=== PATIENT | female | born 1965 | race Caucasian/White ===

== ENCOUNTER 2017-08-16 12:12 | Outpatient (CLI) | payer BC | END 2017-08-16 12:13 | disposition home or self-care (01) | LOC: BICMAMMO 12:12 | DX: Z12.31 Encounter for screening mammogram for malignant neoplasm of breast (principal); E04.1 Nontoxic single thyroid nodule; N63.20 Unspecified lump in the left breast, unspecified quadrant; Z80.3 Family history of malignant neoplasm of breast | CPT/HCPCS: 76536; 77063; 77067 ==

== ENCOUNTER 2018-08-26 13:05 | Outpatient (CLI) | payer BC ==
--- NOTE | 2018-08-26 14:30 | MMO ---
Bilateral MAMMO Bilat Screen [facility]. CLINICAL HISTORY: Patient is 53 years old and is seen for screening. The patient has the following family history of breast cancer: cousin female, 40's. The patient has no personal history of cancer. The patient has a history of right Excisional Biopsy in 1998 - benign. VIEWS: The views performed were: bilateral craniocaudal with tomosynthesis and bilateral mediolateral oblique with tomosynthesis. FILMS COMPARED: The present examination has been compared to prior imaging studies performed at [facility] on 12/09/2012, 12/15/2013, 01/27/2015, 02/01/2016 and 08/16/2017. MAMMOGRAM FINDINGS: There are scattered fibroglandular densities. Finding 1: There are stable benign appearing calcifications seen in both breasts. Finding 2: There is a stable nodule seen in the left breast. There are no suspicious masses, suspicious calcifications, or new areas of architectural distortion. IMPRESSION: THERE IS NO MAMMOGRAPHIC EVIDENCE OF MALIGNANCY. A ROUTINE FOLLOW-UP MAMMOGRAM IN 1 YEAR IS RECOMMENDED. THE RESULTS OF THIS EXAM WERE SENT TO THE PATIENT. ACR BI-RADS Category 2 - Benign finding MAMMOGRAPHY NOTE: 1. A negative mammogram report should not delay a biopsy if a dominant of clinically suspicious mass is present. 2. Approximately 10% to 15% of breast cancers are not detected by mammography. 3. Adenosis and dense breasts may obscure an underlying neoplasm.
--- NOTE | 2018-08-26 14:33 | BD ---
DEXA BONE SCAN: HISTORY: Screening DEXA bone scan is performed. COMPARISON: Comparison study is not available. FINDINGS: DEXA bone scan performed of the left hip and lumbar spine. DEXA evaluation was performed using hologic bone mineral density unit. Lumbar Spine: BMD (g/cm2) L1 0.69 T-Score: -2.7 Z-Score: -1.8 L2 0.78 T-Score: -2.3 Z-Score: -1.2 L3 0.66 T-Score: -3.9 Z-Score: -2.8 L4 0.70 T-Score: -3.3 Z-Score: -2.1 L1-L4 0.71 T-Score: -3.1 Z-Score: -2.0 Femoral Neck: 0.53 T-Score: -2.9 Z-Score: -1.8 Total Femur: 0.68 T-Score: -2.2 Z-Score: -1.5 Findings compatible with osteoporosis. Impression: Osteoporosis. The patient has an increased risk of osteoporotic fractures. POS: ROGER
== END 2018-08-26 13:06 | disposition home or self-care (01) ==
LOC: BICMAMMO 13:05
DX: Z12.31 Encounter for screening mammogram for malignant neoplasm of breast (principal); Z13.820 Encounter for screening for osteoporosis; Z78.0 Asymptomatic menopausal state; M81.0 Age-related osteoporosis without current pathological fracture; Z80.3 Family history of malignant neoplasm of breast
CPT/HCPCS: 77063; 77067; 77080

== ENCOUNTER 2018-09-04 14:24 | Outpatient (CLI) | payer BC ==
--- NOTE | 2018-09-04 15:15 | ULT ---
THYROID ULTRASOUND INDICATION: Thyroid nodule TECHNIQUE: Grayscale and color Doppler images were obtained of the thyroid gland. COMPARISON: None FINDINGS: Right thyroid lobe: The right thyroid lobe measures 4.7 x 1.2 x 1.8 cm. There is a 1.5 x 0.6 x 0.9 cm predominantly cystic nodule involving the mid right thyroid lobe. A small eccentric soft tissue nodule is seen within the cyst. There is an additional 3 mm cyst seen within the right mid thyroid lo be. An additional 3 mm cyst is seen within the right mid thyroid lobe. Thyroid isthmus: The thyroid isthmus measures 0.34 cm. Left thyroid lobe: The left thyroid lobe measures 4.9 x 1.0 x 1.7 cm. There is a hyperechoic 3.2 x 4 mm nodule within the superior left thyroid lobe. There is a 3.7 mm cyst within the mid left thyroid lobe. There is an additional 3 mm cyst within the left mid thyroid lobe. Incidental note is made of a partially calcified atherosclerotic plaque involving the distal left com mon carotid artery. IMPRESSION: 1. TIRADS 1 lesion of the mid right thyroid lobe measuring up to 1.5 cm. No additional sonographic fo llow up is recommended. There are additional smaller cystlike abnormalities within the right thyroid lobe that requires no further follow-up. 2. Hyperechoic 4 mm nodule within the superior left thyroid lobe is consistent with a TIRADS 3 lesion this is below 1.5 cm in size and therefore does not require sonographic follow-up.
== END 2018-09-04 14:25 | disposition home or self-care (01) ==
LOC: BICULT 14:24
PROVIDERS: ATTEND Family Medicine
DX: E04.1 Nontoxic single thyroid nodule (principal); E07.89 Other specified disorders of thyroid; R94.6 Abnormal results of thyroid function studies
CPT/HCPCS: 76536

== ENCOUNTER 2018-10-01 13:36 | Outpatient (CLI) | payer BC ==
--- NOTE | 2018-10-01 14:59 | MMO ---
Left Breast MAMMO Unilat Diag [facility]. CLINICAL HISTORY: Patient is 53 years old and is seen for diagnostic exam and skin thickening or retraction on clinical examination in the left breast. The patient has the following family history of breast cancer: cousin female, 40's. The patient has no personal history of cancer. The patient has a history of right Excisional Biopsy in 1998 - benign. VIEWS: The views performed were: left craniocaudal with tomosynthesis; left mediolateral oblique with tomosynthesis; and left mediolateral. FILMS COMPARED: The present examination has been compared to prior imaging studies performed at [facility] on 01/27/2015, 02/01/2016, 08/16/2017 and 08/26/2018. MAMMOGRAM FINDINGS: There are scattered fibroglandular densities. There is a stable oval mass with circumscribed margins seen in the central region of the left breast. There are no suspicious masses, suspicious calcifications, or new areas of architectural distortion. IMPRESSION: THERE IS NO MAMMOGRAPHIC EVIDENCE OF MALIGNANCY. A ROUTINE FOLLOW-UP MAMMOGRAM IN 1 YEAR IS RECOMMENDED. THE RESULTS OF THIS EXAM WERE SENT TO THE PATIENT. ACR BI-RADS Category 2 - Benign finding MAMMOGRAPHY NOTE: 1. A negative mammogram report should not delay a biopsy if a dominant of clinically suspicious mass is present. 2. Approximately 10% to 15% of breast cancers are not detected by mammography. 3. Adenosis and dense breasts may obscure an underlying neoplasm.
== END 2018-10-01 13:37 | disposition home or self-care (01) ==
LOC: BICMAMMO 13:36
PROVIDERS: ATTEND Family Medicine
DX: N64.59 Other signs and symptoms in breast (principal); Z80.3 Family history of malignant neoplasm of breast
CPT/HCPCS: G0279

== ENCOUNTER 2019-02-25 15:23 | Outpatient (CLI) | payer MEDICARE, BC ==
--- NOTE | 2019-02-25 16:10 | RAD ---
CERVICAL SPINE: INDICATIONS: Cervical spondylosis. COMPARISON: Cervical spine of 02/07/2016. TECHNIQUE: Total of nine views. FINDINGS: Postoperative changes are again noted. Anterior plate and screws are again seen transfixing C3, C4, C 5, C6 and C7. Interbody implants at these levels and interbody fusion changes. Mild anterolisthesis at C6-C7 appears stable from the prior exam. There is loss of height at C6 which is a stable finding. The foramina appear patent. Posterior alignment is otherwise maintained and sta ble from the prior exam. IMPRESSION: Postoperative changes to the cervical spine appear stable when compared to 02/07/2016. POS: OFF
== END 2019-02-25 15:24 | disposition home or self-care (01) ==
LOC: BICRAD 15:23
PROVIDERS: ATTEND Anesthesiology Pain Medicine
DX: M47.812 Spondylosis without myelopathy or radiculopathy, cervical region (principal); Z98.890 Other specified postprocedural states
CPT/HCPCS: 72052

== ENCOUNTER 2019-03-16 14:22 | Outpatient (CLI) | payer MEDICARE, BC ==
--- NOTE | 2019-03-16 15:06 | ULT ---
ULTRASOUND THYROID: Date: 03/16/19 HISTORY: Abnormality of parathyroid gland. COMPARISON: Prior MRI examination of cervical spine. FINDINGS: There is no abnormal enlargement of the parathyroid glands, which are not definitively seen. Right lo be thyroid cyst is similar compared to outside facilities. IMPRESSION: No abnormal enlargement of parathyroid gland. POS: OFF
== END 2019-03-16 14:23 | disposition home or self-care (01) ==
LOC: BICULT 14:22
PROVIDERS: ATTEND Internal Medicine Endocrinology, Diabetes & Metabolism
DX: E04.1 Nontoxic single thyroid nodule (principal); E21.2 Other hyperparathyroidism
CPT/HCPCS: 76536

== ENCOUNTER 2022-06-08 09:54 | Outpatient (CLI) | payer MEDICARE, BC | END 2022-06-08 09:55 | disposition home or self-care (01) | LOC: RAD 09:54 | PROVIDERS: ATTEND Internal Medicine | DX: J43.9 Emphysema, unspecified (principal); J98.4 Other disorders of lung; Z98.1 Arthrodesis status | CPT/HCPCS: 71046 ==

== ENCOUNTER 2023-04-28 17:15 | Inpatient (IN) | payer MEDICARE, BC ==
[2023-04-28 18:25] LABS: #Monocytes 0.7 thou/uL (0.11-0.59); #Neutrophils 6.4 thou/uL (1.40-6.50); %Basophils 0.2 % (0.0-1.0); %Lymphocytes 14.7 % (21.0-51.0); %Monocytes 8.8 % (0.0-10.0); %Neutrophils 75.9 % (42.0-75.0); Mean Corpuscular HGB CONC 31.9 g/dL (32.0-36.0); Mean Corpuscular Volume 106.6 fl (78.0-98.0); Mean Platelet Volume 9.9 fL (7.4-10.4); Platelet Count 134 10x3/uL (130-400); RBC Distribution Width 14.9 % (11.5-14.5); Red Blood Cell (RBC) Count 4.41 mill/uL (4.20-5.40); White Blood Cell (WBC) Count 8.4 10x3/uL (4.8-10.8)
[2023-04-28 18:47] LABS: ALT (SGPT) 530 U/L (8-55); AST (SGOT) 503 U/L (5-34); Albumin 3.2 g/dL (3.5-5.0); Alkaline Phosphatase 133 U/L (40-110); Anion Gap 16 mmol/L (10-20); BUN (Urea Nitrogen) 39 mg/dL (9.8-20.1); Bilirubin, Total 1.3 mg/dL (0.2-1.2); Calc. Creatinine Clearance 0 mL/min (70-130); Carbon Dioxide 26 mmol/L (22-29); Chloride 103 mmol/L (98-107); Estimated GFR 34; Globulin 2.3 g/dL (2.4-3.5); Glucose 89 mg/dL (70-105); Potassium 5.8 mmol/L (3.5-5.1); Protein, Total 5.5 g/dL (6.0-8.3); Sodium 139 mmol/L (136-145)
[2023-04-28 19:36] LABS: Troponin I 0.087 ng/mL (< 0.028)
[2023-04-28 20:03] LABS: Bacteria/HPF None Seen HPF (None Seen); Bilirubin Negative (Negative); Blood, Urine Negative (Negative); CAUTI Indications for Culture Alt mental st,lethar; Clarity Clear (Clear); Glucose, Urine (Dipstick) Normal (Negative); Ketone, Urine Negative (Negative); Leukocyte Negative Leu/uL (Negative); Nitrite Negative (Negative); Protein, Urine (Dipstick) 100 mg/dL (Neg-Trace); RBC/HPF 0-3 HPF (0-3); Specific Gravity, Urine 1.026 (1.002-1.036); Squamous Epithelial 0-3 HPF (0-3); WBC/HPF 0-3 HPF (0-3); pH, Urine 5.5 (5.0-9.0)
[2023-04-28 20:05] LABS: Urine Culture Reflex No No
[2023-04-28 20:16] LABS: Alcohol Less than 10.0 mg/dL (Less than 10); Salicylate Less than 8.0 mg/dL (15.0-30.0)
[2023-04-28] MEDS ORDERED: Senokot S 8.6-50 MG TAB PO PRN (20:47)
[2023-04-28] MEDS ORDERED: Albuterol 2.5 MG (3 mL) NEB NEB PRN (20:57)
[2023-04-28] MEDS ORDERED: Sodium Chloride 0.9% 1,000 ML IV SCH (21:00)
[2023-04-28] MEDS ORDERED: Lactulose 20 GM (30 mL) UDCUP PO SCH (21:30)
[2023-04-28 21:32] LABS: Lactic Acid 1.1 mmol/L (0.5-2.2)
[2023-04-28 21:33] LABS: Acetaminophen Less than 10 mcg/mL (10.0-30.0)
[2023-04-28 21:53] LABS: Troponin I 0.108 ng/mL (< 0.028)
[2023-04-29 00:56] LABS: Anion Gap 13 mmol/L (10-20); BUN (Urea Nitrogen) 42 mg/dL (9.8-20.1); Calc. Creatinine Clearance 26 mL/min (70-130); Carbon Dioxide 27 mmol/L (22-29); Chloride 103 mmol/L (98-107); Estimated GFR 41; Glucose 85 mg/dL (70-105); Lipase 15 U/L (8-78); Potassium 5.5 mmol/L (3.5-5.1); Sodium 137 mmol/L (136-145)
[2023-04-29 01:49] LABS: Troponin I 0.094 ng/mL (< 0.028)
[2023-04-29 03:16] LABS: #Basophils 0.1 thou/uL (0.0-0.2); #Monocytes 1.6 thou/uL (0.11-0.59); #Neutrophils 7.2 thou/uL (1.40-6.50); %Basophils 0.4 % (0.0-1.0); %Eosinophils 0.1 % (0.0-10.0); %Lymphocytes 21.5 % (21.0-51.0); %Monocytes 13.8 % (0.0-10.0); %Neutrophils 63.7 % (42.0-75.0); Hemoglobin 15.6 g/dL (12.0-16.0); Mean Platelet Volume 9.6 fL (7.4-10.4); Platelet Count 149 10x3/uL (130-400); RBC Distribution Width 15.1 % (11.5-14.5); Red Blood Cell (RBC) Count 4.59 mill/uL (4.20-5.40); White Blood Cell (WBC) Count 11.3 10x3/uL (4.8-10.8)
[2023-04-29 04:07] LABS: ALT (SGPT) 742 U/L (8-55); AST (SGOT) 725 U/L (5-34); Alkaline Phosphatase 135 U/L (40-110); Anion Gap 17 mmol/L (10-20); BUN (Urea Nitrogen) 42 mg/dL (9.8-20.1); Bilirubin, Total 1.2 mg/dL (0.2-1.2); Calc. Creatinine Clearance 26 mL/min (70-130); Calcium 7.9 mg/dL (7.8-10.44); Carbon Dioxide 19 mmol/L (22-29); Chloride 106 mmol/L (98-107); Estimated GFR 41; Globulin 2.9 g/dL (2.4-3.5); Glucose 72 mg/dL (70-105); Potassium 6.4 mmol/L (3.5-5.1); Protein, Total 5.9 g/dL (6.0-8.3); Sodium 136 mmol/L (136-145)
[2023-04-29 04:20] LABS: Macrocytosis SLIGHT = 6-15 cells (100X) (0-5/hpf)
[2023-04-29] MEDS ORDERED: Dextrose 50% Abboject 50 ML SYRINGE SLOW IVP ONE ×2 (04:21→04:25)
[2023-04-29] MEDS ORDERED: Calcium Gluc 4.6 MEQ/10 ML (100 MG/ML) SLOW IVP ONE (04:23)
[2023-04-29 04:24] LABS: Mean Corpuscular Volume 113.3 fl (78.0-98.0)
[2023-04-29] MEDS ORDERED: CALCIUM GLUC 1 GM/NS 50 ML 1 GM in Premix 1 BAG IVPB SCH (04:30)
[2023-04-29] MEDS ORDERED: Insulin Regular 300 UNITS/3 ML VIAL ONE (04:36)
[2023-04-29] MEDS ORDERED: Calcium Gluc 4.6 MEQ/10 ML (100 MG/ML) ONE (04:36)
[2023-04-29] MEDS ORDERED: Dextrose 10% in Water 250 ML ONE ×2 (04:36→06:56)
[2023-04-29] MEDS ORDERED: Insulin Regular 300 UNITS/3 ML VIAL SC SCH (04:45)
[2023-04-29 06:23] LABS: Lactic Acid 1.1 mmol/L (0.5-2.2)
[2023-04-29 06:33] LABS: Anion Gap 13 mmol/L (10-20); BUN (Urea Nitrogen) 45 mg/dL (9.8-20.1); Calc. Creatinine Clearance 24 mL/min (70-130); Calcium 8.3 mg/dL (7.8-10.44); Carbon Dioxide 26 mmol/L (22-29); Chloride 104 mmol/L (98-107); Estimated GFR 37; Glucose 166 mg/dL (70-105); Potassium 5.6 mmol/L (3.5-5.1); Sodium 137 mmol/L (136-145)
[2023-04-29] MEDS ORDERED: Ipratropium/Albuterol 3 ML NEB NEB PRN (07:28)
[2023-04-29] MEDS ORDERED: Thiamine HCl 200 MG/2 ML VIAL ONE (12:02)
[2023-04-29] MEDS ORDERED: Folic Acid 1 MG TAB ONE (12:02)
[2023-04-29] MEDS ORDERED: Pantoprazole 40 MG VIAL ONE (12:02)
[2023-04-29] MEDS ORDERED: Lactulose 20 GM (30 mL) UDCUP ONE (12:03)
[2023-04-29] MEDS: Pantoprazole 40 MG VIAL IVP SCH (12:22)
[2023-04-29] MEDS: Lactulose 20 GM (30 mL) UDCUP PO SCH ×3 (12:22→22:47)
[2023-04-29] MEDS: Thiamine HCl 200 MG/2 ML VIAL SLOW IVP SCH (12:22)
[2023-04-29] MEDS: Rifaximin 200 MG TAB PO SCH ×3 (12:22→22:12)
[2023-04-29] MEDS: Folic Acid 1 MG TAB PO SCH (12:22)
[2023-04-29] MEDS: Albumin 25% 25 GM (100 mL) BOT IVPB SCH ×2 (13:48→18:57)
[2023-04-29 16:29] LABS: HBCM Index 0.07 S/CO (0-0.79); HBSAg Index 0.23 S/CO (0-0.99); Hep A IgM AB Non-Reactive S/CO (NonReactive); Hep A IgM S/CO 0.14 S/CO (0-0.79); Hep B Surf Ag Non-Reactive S/CO (NonReactive); Hep C IgG Ab Non-Reactive S/CO (NonReactive); Hep C Index 0.04 S/CO (0-0.79); Hepatitis B Core IgM Abs Non-Reactive S/CO (NonReactive)
[2023-04-29 16:49] LABS: Anion Gap 14 mmol/L (10-20); BUN (Urea Nitrogen) 45 mg/dL (9.8-20.1); Calc. Creatinine Clearance 33 mL/min (70-130); Calcium 8.2 mg/dL (7.8-10.44); Carbon Dioxide 21 mmol/L (22-29); Chloride 106 mmol/L (98-107); Estimated GFR 55; Glucose 111 mg/dL (70-105); Potassium 5.4 mmol/L (3.5-5.1); Sodium 136 mmol/L (136-145)
[2023-04-29] MEDS ORDERED: Lidocaine 4% Patch TD SCH (23:30)
[2023-04-30] MEDS: Albumin 25% 25 GM (100 mL) BOT IVPB SCH ×4 (00:13→17:22)
[2023-04-30] MEDS: Folic Acid 1 MG TAB PO SCH (08:16)
[2023-04-30] MEDS: Rifaximin 200 MG TAB PO SCH (08:16)
[2023-04-30] MEDS: Thiamine HCl 200 MG/2 ML VIAL SLOW IVP SCH (08:16)
[2023-04-30] MEDS: Lactulose 20 GM (30 mL) UDCUP PO SCH ×3 (08:16→20:41)
[2023-04-30] MEDS: Pantoprazole 40 MG VIAL IVP SCH (08:16)
[2023-04-30] MEDS ORDERED: Transdermal Patch Removal TOP SCH (12:00)
[2023-04-30] MEDS ORDERED: Rifaximin 200 MG TAB PO SCH (21:00)
[2023-05-01] MEDS: Albumin 25% 25 GM (100 mL) BOT IVPB SCH ×2 (02:12→05:59)
[2023-05-01 05:24] LABS: ALT (SGPT) 437 U/L (8-55); AST (SGOT) 248 U/L (5-34); Albumin 4.9 g/dL (3.5-5.0); Alkaline Phosphatase 91 U/L (40-110); Anion Gap 10 mmol/L (10-20); BUN (Urea Nitrogen) 30 mg/dL (9.8-20.1); Bilirubin, Total 1.1 mg/dL (0.2-1.2); Calc. Creatinine Clearance 48 mL/min (70-130); Calcium 8.9 mg/dL (7.8-10.44); Carbon Dioxide 35 mmol/L (22-29); Chloride 103 mmol/L (98-107); Estimated GFR 86; Globulin 1.6 g/dL (2.4-3.5); Glucose 100 mg/dL (70-105); Potassium 4.9 mmol/L (3.5-5.1); Protein, Total 6.5 g/dL (6.0-8.3); Sodium 143 mmol/L (136-145)
[2023-05-01] MEDS: Lactulose 20 GM (30 mL) UDCUP PO SCH ×3 (08:52→21:22)
[2023-05-01] MEDS: Folic Acid 1 MG TAB PO SCH (08:53)
[2023-05-01] MEDS: Pantoprazole 40 MG VIAL IVP SCH (08:53)
[2023-05-01] MEDS: Thiamine HCl 200 MG/2 ML VIAL SLOW IVP SCH (08:53)
[2023-05-01] MEDS ORDERED: Rifaximin 200 MG TAB PO SCH (09:00)
[2023-05-01] MEDS ORDERED: Rifaximin 550 MG TAB PO SCH (11:15)
[2023-05-01 13:10] LABS: Phosphorus 3.1 mg/dL (2.3-4.7)
[2023-05-01] MEDS: Rifaximin 550 MG TAB PO SCH (21:22)
[2023-05-01 21:42] LABS: Base Excess 10.5 mEq/L (-2.0 to +3.0); Calcium, Ionized (venous) 1.32 mmol/L (1.16-1.32); Chloride (VBG) 101 mmol/L (98-106); Hematocrit-VBG 38 % (36.0-47.0); Hemoglobin (Hb) 12.8 g/dL (11.7-16.0); Potassium (VBG) 5.51 mmol/L (3.70-5.30); Sodium 148 mmol/L (133-146)
[2023-05-01 21:54] LABS: #Basophils 0.1 thou/uL (0.0-0.2); #Monocytes 0.9 thou/uL (0.11-0.59); #Neutrophils 5.7 thou/uL (1.40-6.50); %Basophils 0.6 % (0.0-1.0); %Eosinophils 0.1 % (0.0-10.0); %Lymphocytes 13.5 % (21.0-51.0); %Monocytes 11.1 % (0.0-10.0); %Neutrophils 72.4 % (42.0-75.0); Hematocrit 42.2 % (36.0-47.0); Hemoglobin 12.3 g/dL (12.0-16.0); Mean Corpuscular HGB CONC 29.1 g/dL (32.0-36.0); Mean Corpuscular Hemoglobin 33.6 pg (27.0-31.0); Mean Corpuscular Volume 115.3 fl (78.0-98.0); Mean Platelet Volume 10.3 fL (7.4-10.4); Platelet Count 118 10x3/uL (130-400); RBC Distribution Width 14.8 % (11.5-14.5); Red Blood Cell (RBC) Count 3.66 mill/uL (4.20-5.40); White Blood Cell (WBC) Count 7.9 10x3/uL (4.8-10.8)
[2023-05-01] MEDS ORDERED: Ventilator Sedation Protocol 1 EACH FS SCH (21:54)
[2023-05-01 22:00] LABS: Actual Bicarbonate (HCO3v) 45.6 mEq/L (22-28); pH (venous) 7.093 (7.32-7.43)
[2023-05-01] MEDS ORDERED: Etomidate 40 MG (20 mL) VIAL IVP SCH (22:00)
[2023-05-01] MEDS ORDERED: Rocuronium Bromide 10 MG/ML (10ML VIAL) IVP SCH (22:00)
[2023-05-01 22:13] LABS: Lactic Acid 0.4 mmol/L (0.5-2.2)
[2023-05-01] MEDS ORDERED: Fentanyl CADD 100 ML IV SCH (22:15)
[2023-05-01] MEDS ORDERED: Fentanyl BOLUS 250 ML IVPB PRN (22:15)
[2023-05-01] MEDS ORDERED: Lorazepam 2 MG/ML VIAL SLOW IVP PRN (22:15)
[2023-05-01] MEDS ORDERED: DISCONTINUE PREVIOUS NARCOTIC PAIN MEDICATIONS AND BENZODIAZEPINES FS SCH (22:15)
[2023-05-01] MEDS ORDERED: Propofol BOLUS 1,000 MG/100 ML VIAL IV PRN (22:15)
[2023-05-01] MEDS ORDERED: Ipratropium/Albuterol 3 ML NEB NEB PRN (22:17)
[2023-05-01 22:18] LABS: ALT (SGPT) 422 U/L (8-55); AST (SGOT) 227 U/L (5-34); Albumin 4.3 g/dL (3.5-5.0); Alkaline Phosphatase 82 U/L (40-110); BUN (Urea Nitrogen) 49 mg/dL (9.8-20.1); Calc. Creatinine Clearance 50 mL/min (70-130); Calcium 8.9 mg/dL (7.8-10.44); Estimated GFR 91; Globulin 1.6 g/dL (2.4-3.5); Glucose 112 mg/dL (70-105); Protein, Total 5.9 g/dL (6.0-8.3)
[2023-05-01 22:28] LABS: Anion Gap 14 mmol/L (10-20); Basophilic Stippling SLIGHT = 1-2 cells HPF (None Seen); Carbon Dioxide 35 mmol/L (22-29); CellaVision Operator ID lab.abc; Chloride 105 mmol/L (98-107); Hypochromia SLIGHT = 6-15 cells HPF (0-5); Macrocytosis SLIGHT = 6-15 cells HPF (0-5); Platelet Adequacy Comment Platelets Decreased; Polychromasia SLIGHT = 2-3 cells HPF (0-2); Potassium 5.8 mmol/L (3.5-5.1); Sodium 148 mmol/L (136-145)
[2023-05-01] MEDS: Propofol 1,000 MG/100 ML VIAL IV PRN (22:30)
[2023-05-01] MEDS ORDERED: Dextrose 5% in Water 1,000 ML IV PRN (22:55)
[2023-05-01] MEDS ORDERED: Glucagon 1 MG/ML KIT IM PRN (22:55)
[2023-05-01] MEDS ORDERED: HumaLOG 300 UNITS/3 ML VIAL SC PRN (22:55)
[2023-05-01] MEDS ORDERED: Dextrose 50% Abboject 50 ML SYRINGE SLOW IVP PRN (22:55)
[2023-05-01] MEDS ORDERED: Electrolyte Replacement Protocol 1 EACH FS PRN (22:56)
[2023-05-01] MEDS ORDERED: Insulin Regular 300 UNITS/3 ML VIAL IVP SCH (23:00)
[2023-05-01 23:12] LABS: Actual Bicarbonate (HCO3a) 37.2 mEq/L (22-28); Base Excess (BEa) 10.3 mEq/L (-2.0 to +3.0); Calcium, Ionized (arterial) 1.24 mmol/L (1.12-1.30); Carboxyhemoglobin (COHb) 2.1 gm% (0.0-3.0); Hematocrit-ABG 37 % (36.0-47.0); Hemoglobin (Hb) 12.5 g/dL (12.0-16.0); pH, Arterial 7.404 (7.35-7.45)
[2023-05-01 23:14] LABS: Puncture Site RBA
[2023-05-01] MEDS: methylPREDNISolone Sod Succ 40 MG VIAL IVP SCH (23:34)
[2023-05-01] MEDS ORDERED: Furosemide 20 MG (2 mL) VIAL SLOW IVP SCH (23:45)
[2023-05-02] MEDS ORDERED: Lactated Ringer's 500 ML IV SCH (01:45)
[2023-05-02] MEDS ORDERED: Albumin 25% 25 GM (100 mL) BOT IVPB SCH (01:45)
[2023-05-02 02:13] LABS: #Monocytes 0.9 thou/uL (0.11-0.59); #Neutrophils 7.2 thou/uL (1.40-6.50); %Basophils 0.2 % (0.0-1.0); %Eosinophils 0.1 % (0.0-10.0); %Lymphocytes 7.5 % (21.0-51.0); %Monocytes 9.9 % (0.0-10.0); %Neutrophils 81.5 % (42.0-75.0); Hematocrit 35.3 % (36.0-47.0); Hemoglobin 10.5 g/dL (12.0-16.0); Mean Corpuscular HGB CONC 29.7 g/dL (32.0-36.0); Mean Corpuscular Volume 114.2 fl (78.0-98.0); Mean Platelet Volume 10.5 fL (7.4-10.4); Platelet Count 119 10x3/uL (130-400); RBC Distribution Width 14.6 % (11.5-14.5); Red Blood Cell (RBC) Count 3.09 mill/uL (4.20-5.40); White Blood Cell (WBC) Count 8.9 10x3/uL (4.8-10.8)
[2023-05-02] MEDS: Vasopressin 20 UNITS in Sodium Chloride 0.9% 50 ML IV SCH ×3 (02:18→17:48)
[2023-05-02 02:29] LABS: INR-International Normal Ratio 1.3; Lactic Acid 2.7 mmol/L (0.5-2.2)
[2023-05-02 02:31] LABS: Fibrinogen 196 mg/dL (253-463); PTT 26.5 sec (22.9-36.1)
[2023-05-02 02:33] LABS: D-Dimer Test 3.48 *mcg/mL (0.27-0.43)
[2023-05-02 02:36] LABS: Platelet Count 119 10x3/uL (130-400)
[2023-05-02 02:44] LABS: Magnesium 2.1 mg/dL (1.6-2.6); Phosphorus 1.9 mg/dL (2.3-4.7)
[2023-05-02] MEDS ORDERED: Pantoprazole 40 MG VIAL IVP SCH (02:45)
[2023-05-02] MEDS ORDERED: Etomidate 40 MG (20 mL) VIAL ONE (03:13)
[2023-05-02] MEDS ORDERED: Rocuronium Bromide 10 MG/ML (10ML VIAL) ONE (03:13)
[2023-05-02] MEDS: methylPREDNISolone Sod Succ 40 MG VIAL IVP SCH (05:41)
[2023-05-02 05:48] LABS: Hematocrit 39.1 % (36.0-47.0); Hemoglobin 12.2 g/dL (12.0-16.0)
[2023-05-02 06:07] LABS: Lactic Acid 2.6 mmol/L (0.5-2.2)
[2023-05-02 06:26] LABS: Platelet Count 87 10x3/uL (130-400)
[2023-05-02 06:27] LABS: Anion Gap 17 mmol/L (10-20); Carbon Dioxide 33 mmol/L (22-29); Chloride 103 mmol/L (98-107); Potassium 4.7 mmol/L (3.5-5.1); Sodium 148 mmol/L (136-145)
[2023-05-02 07:03] LABS: ALT (SGPT) 400 U/L (8-55); AST (SGOT) 236 U/L (5-34); Albumin 4.1 g/dL (3.5-5.0); Alkaline Phosphatase 69 U/L (40-110); BUN (Urea Nitrogen) 55 mg/dL (9.8-20.1); Bilirubin, Total 2.9 mg/dL (0.2-1.2); Calc. Creatinine Clearance 45 mL/min (70-130); Calcium 8.8 mg/dL (7.8-10.44); Estimated GFR 84; Globulin 1.3 g/dL (2.4-3.5); Glucose 147 mg/dL (70-105); Protein, Total 5.4 g/dL (6.0-8.3)
[2023-05-02 08:11] LABS: #Monocytes 0.9 thou/uL (0.11-0.59); #Neutrophils 8.9 thou/uL (1.40-6.50); %Basophils 0.3 % (0.0-1.0); %Monocytes 8.5 % (0.0-10.0); %Neutrophils 85.4 % (42.0-75.0); Hematocrit 43.6 % (36.0-47.0); Hemoglobin 13.6 g/dL (12.0-16.0); Mean Corpuscular HGB CONC 31.2 g/dL (32.0-36.0); Mean Corpuscular Hemoglobin 32.2 pg (27.0-31.0); RBC Distribution Width 21.5 % (11.5-14.5); Red Blood Cell (RBC) Count 4.22 mill/uL (4.20-5.40); White Blood Cell (WBC) Count 10.4 10x3/uL (4.8-10.8)
[2023-05-02 08:14] LABS: Platelet Count 72 10x3/uL (130-400)
[2023-05-02 08:24] LABS: ALV-art Gradient 182.125 mmHg (0-20); Actual Bicarbonate (HCO3a) 32.8 mEq/L (22-28); Base Excess (BEa) 9.5 mEq/L (-2.0 to +3.0); CO2 Tension 39.1 mmHg (35.0-45.0); Calcium, Ionized (arterial) 1.14 mmol/L (1.12-1.30); Carboxyhemoglobin (COHb) 1.8 gm% (0.0-3.0); Hematocrit-ABG 39 % (36.0-47.0); Hemoglobin (Hb) 13.3 g/dL (12.0-16.0); O2 Tension (PaO2), arterial 125.5 mmHg (> 80.0); Potassium - ABG Lab 4.38 mmol/L (3.70-5.30); Puncture Site LRA; pH, Arterial 7.541 (7.35-7.45)
[2023-05-02] MEDS ORDERED: Enoxaparin 40 MG (0.4 mL) SYRINGE SC SCH (09:00)
[2023-05-02] MEDS ORDERED: Potassium Phosphate 15 MMOL in Sodium Chloride 0.9% 100 ML IVPB SCH (09:15)
[2023-05-02 09:23] LABS: Mean Corpuscular Volume 103.3 fl (78.0-98.0)
[2023-05-02] MEDS: Lactulose 20 GM (30 mL) UDCUP PO SCH ×3 (09:23→20:28)
[2023-05-02] MEDS: Folic Acid 1 MG TAB PO SCH (09:24)
[2023-05-02] MEDS: Thiamine HCl 200 MG/2 ML VIAL SLOW IVP SCH (09:24)
[2023-05-02] MEDS: Rifaximin 550 MG TAB PO SCH ×2 (09:48→20:29)
[2023-05-02 10:02] LABS: CO2 Tension 60.8 mmHg (35.0-45.0); O2 Tension (PaO2), arterial 53.7 mmHg (> 80.0)
[2023-05-02] MEDS ORDERED: Furosemide 40 MG (4 mL) VIAL SLOW IVP SCH (12:30)
[2023-05-02] MEDS ORDERED: Iopamidol-370 76% 500 ML MDV (1 ML CHARGE) ONE (14:09)
[2023-05-02] MEDS: Propofol 1,000 MG/100 ML VIAL IV PRN (14:10)
[2023-05-02] MEDS: Pantoprazole 40 MG VIAL IVP SCH (20:29)
[2023-05-03] MEDS: Vasopressin 20 UNITS in Sodium Chloride 0.9% 50 ML IV SCH ×2 (01:01→09:57)
[2023-05-03 04:42] LABS: #Monocytes 1.1 thou/uL (0.11-0.59); #Neutrophils 8.5 thou/uL (1.40-6.50); %Basophils 0.1 % (0.0-1.0); %Lymphocytes 11.7 % (21.0-51.0); %Monocytes 10.4 % (0.0-10.0); %Neutrophils 77.3 % (42.0-75.0); Hematocrit 36.5 % (36.0-47.0); Hemoglobin 11.7 g/dL (12.0-16.0); Mean Corpuscular HGB CONC 32.1 g/dL (32.0-36.0); Mean Platelet Volume 10.4 fL (7.4-10.4); Platelet Count 102 10x3/uL (130-400); RBC Distribution Width 19.6 % (11.5-14.5); Red Blood Cell (RBC) Count 3.66 mill/uL (4.20-5.40)
[2023-05-03 04:46] LABS: Mean Corpuscular Volume 99.7 fl (78.0-98.0)
[2023-05-03 05:10] LABS: Anion Gap 14 mmol/L (10-20); BUN (Urea Nitrogen) 72 mg/dL (9.8-20.1); Calc. Creatinine Clearance 40 mL/min (70-130); Calcium 8.9 mg/dL (7.8-10.44); Carbon Dioxide 37 mmol/L (22-29); Chloride 105 mmol/L (98-107); Estimated GFR 73; Glucose 138 mg/dL (70-105); Potassium 3.9 mmol/L (3.5-5.1)
[2023-05-03 05:14] LABS: Critical Call Chemistry NUR.NDS1 @0514; Sodium 152 mmol/L (136-145)
[2023-05-03] MEDS ORDERED: Magnesium 2 GM/50 ML(in water) 2 GM in Premix 1 BAG IVPB SCH (06:00)
[2023-05-03] MEDS ORDERED: Potassium Chloride 40 MEQ in Premix 1 BAG IVPB SCH (06:00)
[2023-05-03] MEDS: Dextrose 5% in Water 1,000 ML IV SCH ×2 (06:16→15:48)
[2023-05-03 08:30] LABS: Actual Bicarbonate (HCO3a) 35.5 mEq/L (22-28); Base Excess (BEa) 12.1 mEq/L (-2.0 to +3.0); CO2 Tension 40.9 mmHg (35.0-45.0); Calcium, Ionized (arterial) 1.11 mmol/L (1.12-1.30); Carboxyhemoglobin (COHb) 0.9 gm% (0.0-3.0); Hematocrit-ABG 35 % (36.0-47.0); O2 Tension (PaO2), arterial 69.2 mmHg (> 80.0); Potassium - ABG Lab 3.56 mmol/L (3.70-5.30); pH, Arterial 7.556 (7.35-7.45)
[2023-05-03 08:32] LABS: Puncture Site RRA
[2023-05-03 08:35] LABS: ALV-art Gradient 129.225 mmHg (0-20)
[2023-05-03] MEDS: Ipratropium/Albuterol 3 ML NEB NEB SCH ×3 (10:10→19:07)
[2023-05-03] MEDS: Folic Acid 1 MG TAB PO SCH (10:40)
[2023-05-03] MEDS: Lactulose 20 GM (30 mL) UDCUP PO SCH ×3 (10:40→21:19)
[2023-05-03] MEDS: Rifaximin 550 MG TAB PO SCH ×2 (10:40→21:19)
[2023-05-03] MEDS: Thiamine HCl 200 MG/2 ML VIAL SLOW IVP SCH (10:45)
[2023-05-03] MEDS: Pantoprazole 40 MG VIAL IVP SCH ×2 (10:45→21:19)
[2023-05-03] MEDS: methylPREDNISolone Sod Succ 40 MG VIAL IVP SCH ×3 (12:24→23:49)
[2023-05-03 16:14] LABS: A/G Ratio 2.2 (0.7-1.7); Albumin 4.4 g/dL (2.9-4.4); Alpha 1 0.3 g/dL (0.0-0.4); Alpha 2 0.5 g/dL (0.4-1.0); Beta 0.7 g/dL (0.7-1.3); Gamma 0.5 g/dL (0.4-1.8); M-Spike Not Observed g/dL (Not Observed)
[2023-05-03] MEDS: Morphine 2 MG/ML VIAL SLOW IVP PRN (21:35)
[2023-05-03] MEDS: HumaLOG 300 UNITS/3 ML VIAL SC PRN (21:55)
[2023-05-04] MEDS: Morphine 2 MG/ML VIAL SLOW IVP PRN (00:19)
[2023-05-04] MEDS: Ipratropium/Albuterol 3 ML NEB NEB SCH ×5 (02:15→19:53)
[2023-05-04] MEDS: Dextrose 5% in Water 1,000 ML IV SCH ×2 (03:12→13:32)
[2023-05-04] MEDS: Propofol 1,000 MG/100 ML VIAL IV PRN (03:16)
[2023-05-04] MEDS: HumaLOG 300 UNITS/3 ML VIAL SC PRN (04:14)
[2023-05-04 04:43] LABS: #Monocytes 0.7 thou/uL (0.11-0.59); #Neutrophils 11.7 thou/uL (1.40-6.50); %Basophils 0.1 % (0.0-1.0); %Monocytes 5.5 % (0.0-10.0); %Neutrophils 91.9 % (42.0-75.0); Hematocrit 31.8 % (36.0-47.0); Hemoglobin 10.2 g/dL (12.0-16.0); Mean Corpuscular HGB CONC 32.1 g/dL (32.0-36.0); Mean Corpuscular Hemoglobin 32.1 pg (27.0-31.0); Mean Platelet Volume 10.2 fL (7.4-10.4); RBC Distribution Width 17.1 % (11.5-14.5); Red Blood Cell (RBC) Count 3.18 mill/uL (4.20-5.40); White Blood Cell (WBC) Count 12.8 10x3/uL (4.8-10.8)
[2023-05-04 04:59] LABS: Platelet Count 101 10x3/uL (130-400)
[2023-05-04 05:04] LABS: ALT (SGPT) 381 U/L (8-55); AST (SGOT) 164 U/L (5-34); Albumin 3.8 g/dL (3.5-5.0); Alkaline Phosphatase 61 U/L (40-110); Anion Gap 13 mmol/L (10-20); BUN (Urea Nitrogen) 46 mg/dL (9.8-20.1); Bilirubin, Total 1.5 mg/dL (0.2-1.2); Calc. Creatinine Clearance 50 mL/min (70-130); Calcium 8.4 mg/dL (7.8-10.44); Carbon Dioxide 36 mmol/L (22-29); Chloride 102 mmol/L (98-107); Estimated GFR 88; Globulin 1.6 g/dL (2.4-3.5); Glucose 163 mg/dL (70-105); Potassium 3.2 mmol/L (3.5-5.1); Protein, Total 5.4 g/dL (6.0-8.3); Sodium 148 mmol/L (136-145)
[2023-05-04] MEDS: methylPREDNISolone Sod Succ 40 MG VIAL IVP SCH ×3 (05:37→18:01)
[2023-05-04 07:14] LABS: Actual Bicarbonate (HCO3a) 34.9 mEq/L (22-28); Base Excess (BEa) 10.6 mEq/L (-2.0 to +3.0); CO2 Tension 45.7 mmHg (35.0-45.0); Calcium, Ionized (arterial) 1.12 mmol/L (1.12-1.30); Carboxyhemoglobin (COHb) 1.4 gm% (0.0-3.0); Hematocrit-ABG 32 % (36.0-47.0); Hemoglobin (Hb) 10.9 g/dL (12.0-16.0); O2 Tension (PaO2), arterial 65.9 mmHg (> 80.0); Potassium - ABG Lab 3.37 mmol/L (3.70-5.30); pH, Arterial 7.501 (7.35-7.45)
[2023-05-04 07:23] LABS: ALV-art Gradient 126.525 mmHg (0-20); Puncture Site LRA
[2023-05-04] MEDS: Lactulose 20 GM (30 mL) UDCUP PO SCH ×3 (08:51→21:37)
[2023-05-04] MEDS: Thiamine HCl 200 MG/2 ML VIAL SLOW IVP SCH (08:51)
[2023-05-04] MEDS: Potassium Chloride 20 MEQ in Premix 1 BAG IVPB SCH ×2 (08:52→10:23)
[2023-05-04] MEDS: Pantoprazole 40 MG VIAL IVP SCH ×2 (08:52→21:38)
[2023-05-04] MEDS: Rifaximin 550 MG TAB PO SCH ×2 (08:52→21:38)
[2023-05-04] MEDS: Folic Acid 1 MG TAB PO SCH (08:52)
[2023-05-04] MEDS ORDERED: DC Sedation Protocol FS ONE (09:16)
[2023-05-04] MEDS ORDERED: traMADol HCl 50 MG TAB PO PRN ×2 (09:56→10:30)
[2023-05-04] MEDS ORDERED: Lactated Ringer's 1,000 ML IV SCH (21:30)
[2023-05-05] MEDS: methylPREDNISolone Sod Succ 40 MG VIAL IVP SCH ×2 (00:21→05:38)
[2023-05-05] MEDS: Terbinafine 1% Cream 15 GM Tube TOP SCH ×2 (00:23→20:22)
[2023-05-05 04:55] LABS: #Monocytes 0.5 thou/uL (0.11-0.59); %Basophils 0.1 % (0.0-1.0); %Lymphocytes 1.9 % (21.0-51.0); %Monocytes 2.8 % (0.0-10.0); %Neutrophils 94.5 % (42.0-75.0); Hematocrit 30.4 % (36.0-47.0); Hemoglobin 9.7 g/dL (12.0-16.0); Mean Corpuscular HGB CONC 31.9 g/dL (32.0-36.0); Mean Corpuscular Hemoglobin 31.9 pg (27.0-31.0); Mean Platelet Volume 9.6 fL (7.4-10.4); Red Blood Cell (RBC) Count 3.04 mill/uL (4.20-5.40)
[2023-05-05 05:20] LABS: Phosphorus 3.2 mg/dL (2.3-4.7)
[2023-05-05 05:23] LABS: ALT (SGPT) 266 U/L (8-55); AST (SGOT) 79 U/L (5-34); Albumin 3.7 g/dL (3.5-5.0); Alkaline Phosphatase 59 U/L (40-110); Anion Gap 13 mmol/L (10-20); BUN (Urea Nitrogen) 34 mg/dL (9.8-20.1); Bilirubin, Total 1.4 mg/dL (0.2-1.2); Calc. Creatinine Clearance 65 mL/min (70-130); Calcium 8.4 mg/dL (7.8-10.44); Carbon Dioxide 34 mmol/L (22-29); Chloride 98 mmol/L (98-107); Estimated GFR 102; Globulin 1.5 g/dL (2.4-3.5); Glucose 102 mg/dL (70-105); Magnesium 2.1 mg/dL (1.6-2.6); Potassium 4.7 mmol/L (3.5-5.1); Protein, Total 5.2 g/dL (6.0-8.3); Sodium 140 mmol/L (136-145)
[2023-05-05 05:47] LABS: Platelet Count 93 10x3/uL (130-400)
[2023-05-05] MEDS: Ipratropium/Albuterol 3 ML NEB NEB SCH ×4 (07:40→18:28)
[2023-05-05] MEDS: Rifaximin 550 MG TAB PO SCH ×2 (09:23→22:18)
[2023-05-05] MEDS: Folic Acid 1 MG TAB PO SCH (09:24)
[2023-05-05] MEDS: Lactulose 20 GM (30 mL) UDCUP PO SCH ×2 (09:24→16:13)
[2023-05-05] MEDS: Pantoprazole 40 MG VIAL IVP SCH (09:24)
[2023-05-05] MEDS: Thiamine HCl 200 MG/2 ML VIAL SLOW IVP SCH (09:25)
[2023-05-05 16:19] LABS: #Neutrophils 14.3 thou/uL (1.40-6.50); %Basophils 0.1 % (0.0-1.0); %Lymphocytes 4.6 % (21.0-51.0); %Monocytes 6.3 % (0.0-10.0); %Neutrophils 88.3 % (42.0-75.0); Hematocrit 24.1 % (36.0-47.0); Hemoglobin 7.7 g/dL (12.0-16.0); Mean Corpuscular Hemoglobin 32.9 pg (27.0-31.0); Mean Platelet Volume 10.4 fL (7.4-10.4); RBC Distribution Width 15.6 % (11.5-14.5); Red Blood Cell (RBC) Count 2.34 mill/uL (4.20-5.40); White Blood Cell (WBC) Count 16.3 10x3/uL (4.8-10.8)
[2023-05-05 16:24] LABS: Platelet Count 99 10x3/uL (130-400)
[2023-05-05] MEDS ORDERED: Pantoprazole 40 MG VIAL IVP SCH (16:30)
[2023-05-05] MEDS ORDERED: traMADol HCl 50 MG TAB PO PRN (16:45)
[2023-05-05] MEDS ORDERED: Ketamine In 0.9 % NaCl 50 MG/5 ML SYRINGE ONE (16:51)
[2023-05-05] MEDS ORDERED: SUCCINYLCHOLINE/SOD CL,ISO/PF 200 MG/10 ML SYRINGE FS ONE (16:51)
[2023-05-05] MEDS ORDERED: fentaNYL PF 100 MCG/2 ML SYRINGE ONE (16:51)
[2023-05-05] MEDS ORDERED: PROPOFOL 20 ML ONE (16:51)
[2023-05-05] MEDS ORDERED: Lidocaine 1% PF 5 ML VIAL ONE (16:51)
[2023-05-05] MEDS ORDERED: Midazolam HCl 2 mg/2 ml Vial ONE (17:19)
[2023-05-05] MEDS ORDERED: PHENYLEPHRINE-NS 100 MCG/ML 10 ML SYRINGE ONE (17:34)
[2023-05-05] MEDS ORDERED: Propofol 1,000 MG/100 ML VIAL IV ONE (18:18)
[2023-05-05] MEDS ORDERED: Ventilator Sedation Protocol 1 EACH FS SCH (18:26)
[2023-05-05] MEDS ORDERED: Fentanyl CADD 100 ML IV SCH (18:45)
[2023-05-05] MEDS ORDERED: Lorazepam 2 MG/ML VIAL SLOW IVP PRN (18:45)
[2023-05-05] MEDS ORDERED: Propofol BOLUS 1,000 MG/100 ML VIAL IV PRN (18:45)
[2023-05-05] MEDS ORDERED: Morphine 2 MG/ML VIAL SLOW IVP PRN (18:45)
[2023-05-05] MEDS ORDERED: DISCONTINUE PREVIOUS NARCOTIC PAIN MEDICATIONS AND BENZODIAZEPINES FS SCH (18:45)
[2023-05-05] MEDS ORDERED: Propofol 1,000 MG/100 ML VIAL IV PRN (18:45)
[2023-05-05] MEDS ORDERED: Fentanyl BOLUS 250 ML IVPB PRN (18:45)
[2023-05-05 18:48] LABS: Actual Bicarbonate (HCO3a) 34.5 mEq/L (22-28); Base Excess (BEa) 8.3 mEq/L (-2.0 to +3.0); Calcium, Ionized (arterial) 1.14 mmol/L (1.12-1.30); Carboxyhemoglobin (COHb) 1.7 gm% (0.0-3.0); Hematocrit-ABG 21 % (36.0-47.0); Hemoglobin (Hb) 7.1 g/dL (12.0-16.0); O2 Tension (PaO2), arterial 81.2 mmHg (> 80.0); Potassium - ABG Lab 4.87 mmol/L (3.70-5.30); pH, Arterial 7.373 (7.35-7.45)
[2023-05-05] MEDS: Sodium Chloride 0.9% 1,000 ML IV SCH (19:27)
[2023-05-05 19:47] LABS: ALV-art Gradient 128.125 mmHg (0-20); Puncture Site RRA
[2023-05-05] MEDS ORDERED: methylPREDNISolone Sod Succ 40 MG VIAL IVP SCH (21:00)
[2023-05-06] MEDS: methylPREDNISolone Sod Succ 40 MG VIAL IVP SCH ×5 (00:26→23:52)
[2023-05-06] MEDS: Pantoprazole 80 MG, Admixture Fee 1 EACH in Sodium Chloride 0.9% 100 ML IVPB SCH ×3 (03:08→22:36)
[2023-05-06] MEDS: Ipratropium/Albuterol 3 ML NEB NEB SCH ×4 (08:05→19:24)
[2023-05-06 08:09] LABS: #Monocytes 0.5 thou/uL (0.11-0.59); #Neutrophils 11.9 thou/uL (1.40-6.50); %Basophils 0.1 % (0.0-1.0); %Lymphocytes 4.6 % (21.0-51.0); %Monocytes 4.1 % (0.0-10.0); %Neutrophils 90.5 % (42.0-75.0); Hematocrit 20.3 % (36.0-47.0); Hemoglobin 6.7 g/dL (12.0-16.0); Mean Corpuscular Hemoglobin 32.7 pg (27.0-31.0); Mean Platelet Volume 10.4 fL (7.4-10.4); RBC Distribution Width 15.9 % (11.5-14.5); Red Blood Cell (RBC) Count 2.05 mill/uL (4.20-5.40); White Blood Cell (WBC) Count 13.1 10x3/uL (4.8-10.8)
[2023-05-06 08:10] LABS: Platelet Count 80 10x3/uL (130-400)
[2023-05-06 08:29] LABS: Anion Gap 11 mmol/L (10-20); BUN (Urea Nitrogen) 46 mg/dL (9.8-20.1); Calc. Creatinine Clearance 70 mL/min (70-130); Calcium 7.9 mg/dL (7.8-10.44); Carbon Dioxide 32 mmol/L (22-29); Chloride 104 mmol/L (98-107); Estimated GFR 101; Glucose 92 mg/dL (70-105); Potassium 4.6 mmol/L (3.5-5.1); Sodium 142 mmol/L (136-145)
[2023-05-06] MEDS: Terbinafine 1% Cream 15 GM Tube TOP SCH ×2 (09:04→20:24)
[2023-05-06] MEDS: Sodium Chloride 0.9% 1,000 ML IV SCH ×2 (09:04→20:26)
[2023-05-06] MEDS: Folic Acid 1 MG TAB PO SCH ×2 (09:04→09:16)
[2023-05-06] MEDS: Rifaximin 550 MG TAB PO SCH ×2 (09:04→20:27)
[2023-05-06] MEDS: Thiamine HCl 200 MG/2 ML VIAL SLOW IVP SCH (09:04)
[2023-05-06 16:37] LABS: Albumin-Ur 55.9 % (.); Alpha 1 - Ur 3.9 % (.); Alpha 2 - Ur 10.9 % (.); Beta-Ur 18.3 % (.); Gamma-Ur 10.9 % (.); M-Spike,% Not Observed % (Not Observed); Protein, Urine 18.5 mg/dL (Not Estab.)
[2023-05-06] MEDS ORDERED: DC Sedation Protocol FS SCH (19:21)
[2023-05-06] MEDS ORDERED: Morphine 2 MG/ML VIAL SLOW IVP PRN (19:21)
[2023-05-06] MEDS ORDERED: Methocarbamol 500 MG TAB PO PRN (19:21)
[2023-05-06] MEDS: traMADol HCl 50 MG TAB PO PRN (19:42)
[2023-05-07 05:14] LABS: #Monocytes 0.7 thou/uL (0.11-0.59); #Neutrophils 14.4 thou/uL (1.40-6.50); %Basophils 0.1 % (0.0-1.0); %Lymphocytes 4.5 % (21.0-51.0); %Monocytes 4.2 % (0.0-10.0); %Neutrophils 90.7 % (42.0-75.0); Hematocrit 26.1 % (36.0-47.0); Hemoglobin 8.2 g/dL (12.0-16.0); Mean Corpuscular HGB CONC 31.4 g/dL (32.0-36.0); Mean Corpuscular Hemoglobin 32.2 pg (27.0-31.0); Mean Platelet Volume 10.6 fL (7.4-10.4); Platelet Count 106 10x3/uL (130-400); RBC Distribution Width 17.8 % (11.5-14.5); Red Blood Cell (RBC) Count 2.55 mill/uL (4.20-5.40); White Blood Cell (WBC) Count 15.9 10x3/uL (4.8-10.8)
[2023-05-07 05:22] LABS: Mean Corpuscular Volume 102.4 fl (78.0-98.0)
[2023-05-07 05:54] LABS: Anion Gap 12 mmol/L (10-20); BUN (Urea Nitrogen) 37 mg/dL (9.8-20.1); Calc. Creatinine Clearance 75 mL/min (70-130); Calcium 8.3 mg/dL (7.8-10.44); Carbon Dioxide 27 mmol/L (22-29); Chloride 107 mmol/L (98-107); Estimated GFR 102; Glucose 100 mg/dL (70-105); Potassium 4.7 mmol/L (3.5-5.1); Sodium 141 mmol/L (136-145)
[2023-05-07] MEDS: methylPREDNISolone Sod Succ 40 MG VIAL IVP SCH ×2 (06:23→18:50)
[2023-05-07] MEDS: traMADol HCl 50 MG TAB PO PRN ×3 (06:30→21:31)
[2023-05-07] MEDS: Ipratropium/Albuterol 3 ML NEB NEB SCH ×4 (08:43→19:30)
[2023-05-07] MEDS: Folic Acid 1 MG TAB PO SCH (09:53)
[2023-05-07] MEDS: Rifaximin 550 MG TAB PO SCH ×2 (09:53→21:33)
[2023-05-07] MEDS: Thiamine HCl 200 MG/2 ML VIAL SLOW IVP SCH (09:54)
[2023-05-07] MEDS: Terbinafine 1% Cream 15 GM Tube TOP SCH ×2 (09:54→21:33)
[2023-05-07 11:10] LABS: CO2 Tension 60.7 mmHg (35.0-45.0)
[2023-05-07 14:32] VITALS: BMI 18.8
[2023-05-08 04:41] LABS: #Monocytes 1.3 thou/uL (0.11-0.59); #Neutrophils 14.2 thou/uL (1.40-6.50); %Basophils 0.1 % (0.0-1.0); %Eosinophils 0.1 % (0.0-10.0); %Lymphocytes 9.2 % (21.0-51.0); %Monocytes 7.3 % (0.0-10.0); %Neutrophils 82.9 % (42.0-75.0); Hematocrit 20.5 % (36.0-47.0); Hemoglobin 6.3 g/dL (12.0-16.0); Mean Corpuscular HGB CONC 30.7 g/dL (32.0-36.0); Mean Corpuscular Hemoglobin 31.7 pg (27.0-31.0); Mean Platelet Volume 10.7 fL (7.4-10.4); Platelet Count 136 10x3/uL (130-400); RBC Distribution Width 17.1 % (11.5-14.5); Red Blood Cell (RBC) Count 1.99 mill/uL (4.20-5.40); White Blood Cell (WBC) Count 17.1 10x3/uL (4.8-10.8)
[2023-05-08 05:10] LABS: Anion Gap 10 mmol/L (10-20); BUN (Urea Nitrogen) 40 mg/dL (9.8-20.1); Calc. Creatinine Clearance 72 mL/min (70-130); Calcium 8.3 mg/dL (7.8-10.44); Carbon Dioxide 29 mmol/L (22-29); Chloride 103 mmol/L (98-107); Estimated GFR 100; Glucose 99 mg/dL (70-105); Potassium 4.5 mmol/L (3.5-5.1); Sodium 137 mmol/L (136-145)
[2023-05-08] MEDS: methylPREDNISolone Sod Succ 40 MG VIAL IVP SCH ×2 (05:50→16:44)
[2023-05-08] MEDS: Ipratropium/Albuterol 3 ML NEB NEB SCH ×4 (06:52→18:30)
[2023-05-08] MEDS: Thiamine HCl 200 MG/2 ML VIAL SLOW IVP SCH (08:07)
[2023-05-08] MEDS: Cyanocobalamin (Vitamin B-12) 1,000 MCG TAB PO SCH (08:07)
[2023-05-08] MEDS: Terbinafine 1% Cream 15 GM Tube TOP SCH ×2 (09:49→22:11)
[2023-05-08] MEDS: Rifaximin 550 MG TAB PO SCH ×3 (09:49→22:08)
[2023-05-08 16:09] LABS: Hematocrit 23.4 % (36.0-47.0); Hemoglobin 7.5 g/dL (12.0-16.0)
[2023-05-09] MEDS: methylPREDNISolone Sod Succ 40 MG VIAL IVP SCH (05:30)
[2023-05-09] MEDS: Ipratropium/Albuterol 3 ML NEB NEB SCH ×4 (06:46→19:00)
[2023-05-09 06:56] LABS: #Neutrophils 10.3 thou/uL (1.40-6.50); %Eosinophils 0.3 % (0.0-10.0); %Lymphocytes 11.3 % (21.0-51.0); %Neutrophils 79.9 % (42.0-75.0); Hematocrit 21.5 % (36.0-47.0); Hemoglobin 6.7 g/dL (12.0-16.0); Mean Corpuscular HGB CONC 31.2 g/dL (32.0-36.0); Mean Corpuscular Hemoglobin 31.6 pg (27.0-31.0); Mean Corpuscular Volume 101.4 fl (78.0-98.0); Mean Platelet Volume 10.3 fL (7.4-10.4); Platelet Count 147 10x3/uL (130-400); RBC Distribution Width 16.9 % (11.5-14.5); Red Blood Cell (RBC) Count 2.12 mill/uL (4.20-5.40); White Blood Cell (WBC) Count 12.9 10x3/uL (4.8-10.8)
[2023-05-09 07:50] LABS: Anion Gap 7 mmol/L (10-20); BUN (Urea Nitrogen) 34 mg/dL (9.8-20.1); Calc. Creatinine Clearance 76 mL/min (70-130); Calcium 8.1 mg/dL (7.8-10.44); Carbon Dioxide 33 mmol/L (22-29); Chloride 105 mmol/L (98-107); Estimated GFR 102; Glucose 82 mg/dL (70-105); Potassium 4.1 mmol/L (3.5-5.1); Sodium 141 mmol/L (136-145)
[2023-05-09] MEDS: Thiamine HCl 200 MG/2 ML VIAL SLOW IVP SCH (08:36)
[2023-05-09] MEDS: Rifaximin 550 MG TAB PO SCH ×2 (08:37→20:21)
[2023-05-09] MEDS: Terbinafine 1% Cream 15 GM Tube TOP SCH ×2 (08:37→23:49)
[2023-05-09] MEDS: Cyanocobalamin (Vitamin B-12) 1,000 MCG TAB PO SCH (08:37)
[2023-05-09] MEDS: traMADol HCl 50 MG TAB PO PRN (16:49)
[2023-05-09] MEDS: Pantoprazole 40 MG VIAL IVP SCH (20:16)
[2023-05-10] MEDS: Ipratropium/Albuterol 3 ML NEB NEB SCH ×3 (06:54→13:40)
[2023-05-10] MEDS: methylPREDNISolone Sod Succ 40 MG VIAL IVP SCH (06:58)
[2023-05-10] MEDS: Cyanocobalamin (Vitamin B-12) 1,000 MCG TAB PO SCH (07:53)
[2023-05-10] MEDS: Pantoprazole 40 MG VIAL IVP SCH (07:53)
[2023-05-10] MEDS: Rifaximin 550 MG TAB PO SCH (07:53)
[2023-05-10] MEDS: Terbinafine 1% Cream 15 GM Tube TOP SCH (07:53)
[2023-05-10] MEDS: Thiamine HCl 200 MG/2 ML VIAL SLOW IVP SCH (07:53)
[2023-05-10 08:18] VITALS: BP 126/69; TEMP 97.8
== END 2023-05-10 17:36 | disposition hospice, home (50) | DRG 208 ==
LOC: ERS 17:15 → ERHOLD 20:41 → 2SW 04-29 17:38 → T4-A 05-01 18:58 → CCU 05-01 22:07 → T4-A 05-08 01:06
PROVIDERS: ADMIT Student in an Organized Health Care Education/Training Program; ATTEND Internal Medicine
PROC: 30233J1 Transfusion of Nonautologous Serum Albumin into Peripheral Vein, Percutaneous Approach (ICD-10-PCS; 2023-04-29)
PROC: 0BH17EZ Insertion of Endotracheal Airway into Trachea, Via Natural or Artificial Opening (ICD-10-PCS; principal; 2023-05-01)
PROC: 5A1945Z Respiratory Ventilation, 24-96 Consecutive Hours (ICD-10-PCS; 2023-05-01)
PROC: 4A133R1 Monitoring of Arterial Saturation, Peripheral, Percutaneous Approach (ICD-10-PCS; 2023-05-01)
PROC: 30233N1 Transfusion of Nonautologous Red Blood Cells into Peripheral Vein, Percutaneous Approach (ICD-10-PCS; 2023-05-02)
PROC: 3E033XZ Introduction of Vasopressor into Peripheral Vein, Percutaneous Approach (ICD-10-PCS; 2023-05-02)
PROC: 0W3P8ZZ Control Bleeding in Gastrointestinal Tract, Via Natural or Artificial Opening Endoscopic (ICD-10-PCS; 2023-05-03)
PROC: 5A1935Z Respiratory Ventilation, Less than 24 Consecutive Hours (ICD-10-PCS; 2023-05-05)
PROC: 0W3P8ZZ Control Bleeding in Gastrointestinal Tract, Via Natural or Artificial Opening Endoscopic (ICD-10-PCS; 2023-05-05)
DX: J96.21 Acute and chronic respiratory failure with hypoxia (principal); G93.41 Metabolic encephalopathy; E43 Unspecified severe protein-calorie malnutrition; K26.4 Chronic or unspecified duodenal ulcer with hemorrhage; K72.00 Acute and subacute hepatic failure without coma; E87.20 Acidosis, unspecified; N17.9 Acute kidney failure, unspecified; E72.20 Disorder of urea cycle metabolism, unspecified; J44.1 Chronic obstructive pulmonary disease with (acute) exacerbation; Z68.1 Body mass index [BMI] 19.9 or less, adult; E87.0 Hyperosmolality and hypernatremia; D62 Acute posthemorrhagic anemia; J96.22 Acute and chronic respiratory failure with hypercapnia; E87.5 Hyperkalemia; R77.8 Other specified abnormalities of plasma proteins; K25.9 Gastric ulcer, unspecified as acute or chronic, without hemorrhage or perforation; K76.82 Hepatic encephalopathy; R62.7 Adult failure to thrive; R53.81 Other malaise; E86.0 Dehydration; Z88.1 Allergy status to other antibiotic agents; Z91.048 Other nonmedicinal substance allergy status; Z88.8 Allergy status to other drugs, medicaments and biological substances; Z79.899 Other long term (current) drug therapy; Z98.890 Other specified postprocedural states; Z87.891 Personal history of nicotine dependence; Z90.710 Acquired absence of both cervix and uterus; Z51.5 Encounter for palliative care
CPT/HCPCS: 36415; 36416; 36430; 36600; 51701; 71045; 74177; 76705; 80048; 80053; 80074; 80307; 81001; 82103; 82140; 82805; 83605; 83690; 83735; 83880; 84100; 84155; 84156; 84165; 84166; 84484; 85025; 85049; 85300; 85362; 85379; 85384; 85610; 85730; 86850; 86900; 86901; 93005; 93306; 94002; 94003; 94640; 96360; 96361; C9113; J0612; J1815; J1940; J2250; J2272; J2704; J2920; J3411; J3480; J3490; J7050; J7070; J7120; J7620; J7999; P9016; P9047; Q9967